=== PATIENT | male | born 1985 | race Caucasian/White ===

== ENCOUNTER 2019-05-18 10:39 | Emergency (ER) | payer MEDICAID, SELFPAY ==
[2019-05-18 10:43] VITALS: BP 123/83; PULSE 80; RESP 20; TEMP 36.2; O2SAT 96
[2019-05-18 10:57] LABS: Bilirubin Small (Negative); Blood Negative (Negative); Clarity Clear (Clear); Glucose Negative (Negative); Ketones Trace mg/dL (Negative); Leukocyte Esterase Negative (Negative); Nitrite Negative (Negative); Specific Gravity >= 1.030 (1.005-1.025); Urobilinogen 0.2 EU/dL (Up TO 0.2); pH 5.5 (5-8)
--- NOTE | 2019-05-23 19:41 | W.ED.FU ---
Notified by nursing that Pt left without being seen. Pt not in waiting room.
== END 2019-05-18 11:47 ==
PROVIDERS: Emergency Medicine; Emergency Provider Student in an Organized Health Care Education/Training Program; PCP Internal Medicine
DX: Z53.21 Procedure and treatment not carried out due to patient leaving prior to being seen by health care provider (principal)
CPT/HCPCS: 81003

== ENCOUNTER 2019-06-10 12:08 | Outpatient (REF) | payer MEDICAID, SELFPAY ==
[2019-06-10 23:03] LABS: Anion Gap 10.9 mmol/L (3-11); BUN 14 mg/dL (7-18); CO2 28.1 mmol/L (21.0-32.0); Calcium 9.6 mg/dL (8.5-10.1); Chloride 101 mmol/L (98-107); Cholesterol 207 mg/dL (<200); Glucose 98 mg/dL (74-106); HDL Cholesterol 27 mg/dL (40-60); Potassium 4.6 mmol/L (3.5-5.1); Sodium 140 mmol/L (136-145); Triglyceride 433 mg/dL (<150)
[2019-06-10 23:40] LABS: LDL CHOLESTEROL 136 mg/dL (<100)
[2019-06-12 13:16] LABS: Hepatitis C Ab w Rflx HCV PCR Reactive (Negative)
[2019-06-15 14:26] LABS: HCV RNA Detection Quantitative 0 IU/mL (Undetected)
== END 2019-06-10 12:28 ==
LOC: NCHCN 12:08
PROVIDERS: Visit Provider Specialist/Technologist Athletic Trainer
DX: Z00.00 Encounter for general adult medical examination without abnormal findings (principal); Z13.220 Encounter for screening for lipoid disorders; Z13.228 Encounter for screening for other metabolic disorders; Z11.59 Encounter for screening for other viral diseases
CPT/HCPCS: 80048; 80061; 83721; 86803; 87522

== ENCOUNTER 2022-04-10 11:19 | Outpatient (CLI) | payer MEDICAID, SELFPAY ==
--- NOTE | 2022-04-10 11:15 | RT.EKG_ITS ---
APPROVED REPORT Exam: Resting ECG Reason for Exam: buttermaker medication use Patient Location: O HR:94 bpm ECG Measurements Heart Rate 94 AXIS NJ 138 P 49 QRSd 94 QRS -11 QT 371 T 56 QTc 464 Conclusion Sinus rhythm...normal P axis, V-rate 50- 99 Multiform ventricular premature complexes...short R-R, variable morphology
== END 2022-04-10 11:20 | disposition home or self-care (01) ==
PROVIDERS: Visit Provider Family Medicine
DX: R94.31 Abnormal electrocardiogram [ECG] [EKG] (principal); I49.3 Ventricular premature depolarization; Z51.81 Encounter for therapeutic drug level monitoring
CPT/HCPCS: 93005; 93010

== ENCOUNTER 2022-04-11 07:29 | Emergency (ER) | payer MEDICAID, SELFPAY ==
[2022-04-11 07:48] VITALS: BP 122/94; PULSE 91; TEMP 36.8; O2SAT 98
--- NOTE | 2022-04-11 08:11 | ED.GENADUL_ITS ---
Discharge Plan Disposition Patient Disposition: Home Condition: Stable Discharge Details Clinical Impression: Abscess, dental Primary Care Provider: None,None ED Provider: Christofer Smith Home Meds and New Rx's Prescriptions: New amoxicillin-pot clavulanate 875-125 mg tablet 1 tab PO Q12H 7 Days Qty: 14 0RF Continued methadone 10 MG/ML concentrate 120 mg PO DAILY gabapentin 400 mg capsule 1,200 cap PO TID Label Comments: TAKE ONE CAPSULE BY MOUTH THREE TIMES A DAY WITH 800MG venlafaxine 150 mg capsule,extended release 24hr 150 cap PO HS Label Comments: TAKE TWO CAPSULES BY MOUTH EVERY DAY dexmethylphenidate 10 mg tablet 10 tab PO DAILY Label Comments: TAKE ONE TABLET BY MOUTH EVERY DAY IN THE AFTERNOON trazodone 100 mg tablet 100 tab PO HS Label Comments: TAKE ONE TABLET BY MOUTH AT BEDTIME mirtazapine 30 mg tablet 30 tab PO HS Label Comments: TAKE ONE TABLET BY MOUTH AT BEDTIME dexmethylphenidate 40 mg capsule,ER biphasic 50-50 40 cap PO DAILY Label Comments: TAKE ONE CAPSULE BY MOUTH EVERY MORNING Discharge Instructions Instructions: Dental Abscess (ED) Additional Instructions: It is very important that you follow-up with a dental provider preferably in the next week for definitive care of your dental complaint. Please take your antibiotic for the full 7 days and return to the emergency department for any new or significant worsening of symptoms as discussed. You may continue to take [id number] acetaminophen or ibuprofen as needed for discomfort. Medical Decision Making Patient presenting to the emergency department for chief complaint of dental pain and facial swelling. Patient states that he has had dental pain for the last month due to poor dentition and broken off teeth but then this morning he woke up and he had some facial swelling. Patient denies any fever, difficulty breathing or swallowing, or all other symptoms. Patient does have history of dental abscess. Physical exam shows very poor dentition with multiple teeth having decay down to gumline, patient has decayed teeth for 5 and 6 that are of concern with erythema around the base. No palpable drainable abscesses noted but obvious facial swelling is appreciated in the corresponding area. Exam is otherwise unremarkable. We will plan on giving patient ketorolac IM shot for pain and placing patient on Augmentin due to multiple decayed teeth and history of dental abscess. Patient was strongly encouraged to follow-up with dental provider for definitive care of his poor dentition. no signs of deep neck space infection ( Retropharyngeal abscess, Wang's angina, Parapharyngeal space infection, Peritonsillar Abscess ([employer])) or Epiglottitis. Pt non toxic and stable. After discussion of diagnosis and plan of care patient has no further needs, questions, or concerns and states clear understanding to return to the emergency department for any worsening symptoms. This documentation was generated using [employer] dictation system, please disregard any oddities of phrase or misspellings. Sign Out No HPI General Mode of arrival: ambulatory . Date/Time Provider Initiated Documentation: 04/11/22 07:31 . Limitations to Documentation: no limitations . Information obtained by: patient . History of Present Illness 37 year old M presents to the emergency department with the chief complaint of Dental pain, described as moderate, with intensity rated at 6. Quality is described as aching, and is localized to the mouth. Patient reports no radiation. Patient started experiencing this month(s) (1) and it has been constant. No relieving factors improve symptom(s), No exacerbating factors reported . Patient notes no other symptoms.. Patient did receive the following treatments prior to arrival, NSAID Related Data Home Medications Medication Instructions Recorded Confirmed methadone 10 mg/mL oral concentrate 120 mg PO DAILY 09/24/17 04/11/22 amoxicillin 875 mg-potassium 1 tab PO Q12H 7 days #14 tabs 04/11/22 clavulanate 125 mg tablet dexmethylphenidate 10 mg tablet 10 tab PO DAILY 04/11/22 04/11/22 dexmethylphenidate 40 mg 40 cap PO DAILY 04/11/22 04/11/22 capsule,extended release [id number] gabapentin 400 mg capsule 1,200 cap PO TID 04/11/22 04/11/22 mirtazapine 30 mg tablet 30 tab PO HS 04/11/22 04/11/22 trazodone 100 mg tablet 100 tab PO HS 04/11/22 04/11/22 venlafaxine 150 mg 150 cap PO HS 04/11/22 04/11/22 capsule,extended release 24 hr Previous Rx's Medication Instructions Recorded amoxicillin 875 mg-potassium 1 tab PO Q12H 7 days #14 tabs 04/11/22 clavulanate 125 mg tablet Allergies Allergy/AdvReac Type Severity Reaction Status Date / Time No Known Allergies Allergy Unverified 04/11/22 07:50 General Stated Complaint: DentalOral PUJA: 4 Review of Systems Constitutional Constitutional: Denies chills and Denies fever(s) ENT Ears, Nose, Mouth, and Throat: Reports as per HPI, Denies change in voice, Reports dental pain, Denies dysphagia, Denies throat swelling and Denies tongue swelling Cardiovascular Cardiovascular: Denies chest pain and Denies dyspnea Respiratory Respiratory: Denies dyspnea, Denies stridor and Denies wheezing Gastrointestinal Gastrointestinal: Denies abdominal pain, Denies dysphagia, Denies nausea and Denies vomiting Integumentary/Breasts Skin/Breast: Denies rash Allergic/Immunologic Allergic/Immunologic: Denies throat swelling, Denies tongue swelling and Denies wheezing PFSH All Active Problems Abscess, dental (Acute) Social History Smoking/Tobacco Use Status: Current every day Tobacco Type: cigarettes Smoking risk assessment performed?: Yes Alcohol Intake: never Drug use: Daily Substance use type: marijuana Do you feel safe at home: Yes Do you feel safe in your relationship?: Yes Exam Const General: cooperative Orientation: alert, awake and oriented x3 Limitations: mental status not altered [facility] Head: normal to inspection, normocephalic and atraumatic Ears: hearing grossly normal bilaterally, normal mastoids bilaterally and no periauricular adenopathy General nose exam: external nose normal Mouth: oropharynx normal, no drooling, no muffled voice, normal tongue and no trismus Teeth and gingiva: abnormal tooth or associated gingiva upper right tender, with associated gingival edema and dentin fractured; without associated gingival fluctuance, caries and poor dentition (With many teeth decay down to gumline) Throat: posterior oropharynx normal, tonsils normal and uvula midline Eyes General: appearance normal, both eyes and all related structures Pupils: PERRL Neck Neck: normal visual inspection, full ROM, no lymphadenopathy, no meningeal signs, trachea midline, supple, no anterior neck swelling and no midline deformity Resp Effort & Inspection: normal respiratory effort and able to speak in complete sentences Cardio Rate: regular rate Rhythm: regular rhythm Pulses: normal peripheral pulses Course Vital Signs Vital signs: Vital Signs Temperature 36.8 C 04/11/22 07:48 Pulse 91 H 04/11/22 07:48 Blood Pressure 122/94 H 04/11/22 07:48 Pulse Oximetry 98 04/11/22 07:48 Temperature 36.8 C 04/11/22 07:48 Temperature Source Oral 04/11/22 07:48 Pulse 91 H 04/11/22 07:48 Respiratory Effort 04/11/22 07:53 Blood Pressure 122/94 H 04/11/22 07:48 Blood Pressure Position Sitting 04/11/22 07:48 Pulse Oximetry 98 04/11/22 07:48 Oxygen Delivery Method Room Air 04/11/22 07:48 Oxygen Flow Rate 0 04/11/22 07:48 Pain Level 6 04/11/22 07:53
[2022-04-11] MEDS: Amoxicillin 875/Clav. 125 TAB PO (08:41)
[2022-04-11] MEDS: Ketorolac 30 MG/ML VIAL IM (08:41)
== END 2022-04-11 08:46 | disposition home or self-care (01) ==
PROVIDERS: Emergency Provider Nurse Practitioner Family
DX: K04.7 Periapical abscess without sinus (principal)
CPT/HCPCS: 99283; J1885

== ENCOUNTER 2024-09-08 08:01 | Outpatient (CLI) | payer MEDICAID, SELFPAY ==
--- NOTE | 2024-09-08 08:00 | RT.EKG_ITS ---
APPROVED REPORT Exam: Resting ECG Reason for Exam: high risk medication use Patient Location: O HR:70 bpm ECG Measurements Heart Rate 70 AXIS MO 148 P 2 QRSd 98 QRS -19 QT 426 T 24 QTc 460 Conclusion Sinus rhythm...normal P axis, V-rate 50- 99 Ventricular premature complex...V complex w/ short R-R interval Otherwise normal ECG
== END 2024-09-08 08:02 | disposition home or self-care (01) ==
LOC: CARDOPNVT 08:01
PROVIDERS: Visit Provider Family Medicine
DX: Z79.899 Other long term (current) drug therapy (principal); I49.3 Ventricular premature depolarization
CPT/HCPCS: 93005; 93010